=== PATIENT | female | born 1995 | race Caucasian/White ===

== ENCOUNTER 2025-01-17 09:00 | Emergency (ER) | payer SELFPAY ==
[~2025-01-17] VITALS: Ht 165.1 cm; Wt 81.0 kg
[2025-01-17 09:07] VITALS: O2SAT 99
[2025-01-17] MEDS ORDERED: DIPH25TA62 MT (09:23)
[2025-01-17] MEDS ORDERED: FAMO-135 MT (09:23)
[2025-01-17] MEDS ORDERED: P50 MT (09:23)
[2025-01-17] MEDS: PREDNISONE 20MG TABLET PO ONE (09:35)
[2025-01-17 10:01] VITALS: BP 129/82; PULSE 72; RESP 16; TEMP 37.4; O2SAT 100
== END 2025-01-17 10:02 | disposition home or self-care (01) ==
LOC: ER 09:00
DX: L50.9 Urticaria, unspecified (principal); J45.909 Unspecified asthma, uncomplicated; Z88.1 Allergy status to other antibiotic agents
CPT/HCPCS: 99283; J7512